=== PATIENT | female | born 1935 | race Two or more races ===

== ENCOUNTER 2023-10-10 15:30 | Inpatient (IN) | payer OTHER ==
[~2023-10-10] VITALS: Ht 160 cm; Wt 75.4 kg
[2023-10-10] MEDS: dilTIAZem 25 MG/5 ML VIAL IV ONE ×2 (16:23→16:32)
[2023-10-10 16:27] LABS: Basophils # (auto) 0.1 10 ^3/uL (0-0.2); Basophils % (auto) 0.5 % (0.0-2.0); Eosinophils # (auto) 0.3 10 ^3/uL (0-0.8); Eosinophils % (auto) 2.4 % (0.0-7.0); Hematocrit 43.9 % (36.0-46.0); Hemoglobin 14.3 g/dL (12.2-16.2); Lymphocytes # (auto) 0.9 10 ^3/uL (0.4-5.4); Lymphocytes % (auto) 7.1 % (10.0-50.0); Mean Corpuscular Hemoglobin 29.9 pg (28.0-32.0); Mean Corpuscular Hgb Conc. 32.7 g/dL (32.0-36.0); Mean Corpuscular Volume 91.7 fL (80.0-100.0); Monocytes # (auto) 0.8 10 ^3/uL (0-1.3); Monocytes % (auto) 6.5 % (0.0-12.0); Neutrophils # (auto) 10.4 10 ^3/uL (1.6-8.6); Neutrophils % (auto) 83.5 % (37.0-80.0); Nucleated Red Blood Cells % 0.1 %; Red Blood Cells 4.79 10^6/uL (4.0-5.20); Red Cell Distribution Width 14.1 % (11.8-14.3); White Blood Cell 12.4 10^3/uL (4.4-10.8)
[2023-10-10 16:45] LABS: Alanine Aminotransferase 11 U/L (7-40); Albumin 4.5 g/dL (3.2-4.8); Alkaline Phosphatase 76 U/L (46-116); Anion Gap 7 (5-15); Aspartate Aminotransferase 19 U/L (13-40); BUN/Creatinine Ratio 8.8 (10.0-20.0); Bilirubin, Total 0.5 mg/dL (0.2-1.0); Blood Urea Nitrogen 7 mg/dL (9-23); Calcium 9.3 mg/dL (8.5-10.1); Carbon Dioxide 23 mmol/L (20-30); Chloride 98 mmol/L (98-107); Glucose 104 mg/dL (74-106); Potassium 3.9 mmol/L (3.5-5.1); Sodium 128 mmol/L (136-145); Total Protein 7.5 g/dL (5.7-8.2)
[2023-10-10] MEDS: AMIODARONE BOLUS KIT 100 ML IV ONE (16:48)
[2023-10-10] MEDS ORDERED: dilTIAZem 125mg/125ml BAG KIT 125 ML IV ONE (17:00)
[2023-10-10] MEDS: AMIODARONE 450mg/250ml AE 250 ML IV SCH ×2 (17:00→23:10)
[2023-10-10] MEDS ORDERED: ENOXAPARIN SOD 100 MG/1 ML SYRINGE SC ONE (17:15)
[2023-10-10] MEDS ORDERED: MORPHINE SULFATE INJ 2 MG/ml SYRG IV PRN ×3 (17:15→18:30)
[2023-10-10] MEDS ORDERED: NITROGLYCERIN 0.4 MG SL TAB SL PRN ×2 (17:15→18:30)
[2023-10-10] MEDS: ENOXAPARIN SOD 80 MG/0.8ML SYRINGE SC SCH (17:39)
[2023-10-10] MEDS: METOPROLOL TARTRATE 25 MG TAB PO ONE (17:39)
[2023-10-10] MEDS: MAGNESIUM SULFATE 1GM/100ML 100 ML IV ONE ×2 (17:39→18:30)
[2023-10-10] MEDS: POTASSIUM CHL 20 Meq TABLET PO ONE (17:40)
[2023-10-10] MEDS ORDERED: DOCUSATE SOD 100 MG CAP PO PRN (18:30)
[2023-10-10] MEDS ORDERED: ONDANSETRON HCL 4 MG/2 ML VIAL IV PRN (18:30)
[2023-10-10] MEDS ORDERED: ACETAMINOPHEN 325 MG TAB PO PRN (18:30)
[2023-10-10] MEDS ORDERED: HYDROcodone-ACET 5/325MG TAB PO PRN (18:30)
[2023-10-10 18:31] LABS: Urine Bacteria FEW /hpf (None Seen); Urine Blood Negative /uL (Negative); Urine Clarity Clear (Clear); Urine Color Colorless (Yellow); Urine Protein, UAD Negative (Negative); Urine Specific Gravity 1.006 (1.001-1.035); Urine Urobilinogen Normal (Negative); Urine WBC 1 /hpf (0 - 5); Urine pH 5.5 (5.0-9.0)
[2023-10-10] MEDS ORDERED: LISI2.5T47 PO (18:38)
[2023-10-10] MEDS ORDERED: METF-370 PO (18:38)
[2023-10-10] MEDS ORDERED: HYDR25TA5 PO (18:38)
[2023-10-10] MEDS ORDERED: SITA100T7 PO (18:38)
[2023-10-10] MEDS ORDERED: BUPR150T8 PO (18:38)
[2023-10-10] MEDS ORDERED: GLIP5TAB21 PO (18:38)
[2023-10-10 18:51] VITALS: PULSE 132; RESP 20; O2SAT 96
[2023-10-10] MEDS ORDERED: DEXTROSE (50%) 50ML SYRG IV PRN (19:00)
[2023-10-10] MEDS ORDERED: ALBUTEROL SULF 2.5 MG/0.5ML(0.5%) NEB SOLN NEB PRN (19:00)
[2023-10-10] MEDS ORDERED: IPRATROPIUM BROM 0.5 MG/2.5ML INH SOL NEB PRN (19:00)
[2023-10-10] MEDS: cefTRIAXone 1GM/50ML D5W 50 ML IV ONE (19:01)
[2023-10-10] MEDS: DOXYCYCLINE 100MG/250ML 250 ML IV SCH (19:01)
[2023-10-10 19:20] VITALS: PULSE 119; RESP 16; O2SAT 93
[2023-10-10] MEDS: PANTOPRAZOLE 40 MG/10 ML VIAL INJ IV SCH (19:49)
[2023-10-10 19:58] VITALS: BP 120/69; PULSE 149; RESP 20; O2SAT 98
[2023-10-10] MEDS: METOPROLOL TARTRATE 25 MG TAB PO SCH (21:06)
[2023-10-10] MEDS: InsuLIN REG 1unit/0.01ml Soln (100units/ml) SC SCH (21:07)
[2023-10-10] MEDS: ACCU-CHEK COMFORT CURVE STRIP VI SCH (21:07)
[2023-10-11 05:12] LABS: Basophils # (auto) 0 10 ^3/uL (0-0.2); Basophils % (auto) 0.3 % (0.0-2.0); Eosinophils # (auto) 0 10 ^3/uL (0-0.8); Eosinophils % (auto) 0.1 % (0.0-7.0); Hematocrit 40.9 % (36.0-46.0); Hemoglobin 13.8 g/dL (12.2-16.2); Lymphocytes # (auto) 0.5 10 ^3/uL (0.4-5.4); Lymphocytes % (auto) 3.6 % (10.0-50.0); Mean Corpuscular Hgb Conc. 33.7 g/dL (32.0-36.0); Mean Corpuscular Volume 89.1 fL (80.0-100.0); Monocytes # (auto) 0.7 10 ^3/uL (0-1.3); Monocytes % (auto) 4.6 % (0.0-12.0); Neutrophils # (auto) 12.9 10 ^3/uL (1.6-8.6); Neutrophils % (auto) 91.4 % (37.0-80.0); Red Blood Cells 4.59 10^6/uL (4.0-5.20); Red Cell Distribution Width 14.1 % (11.8-14.3); White Blood Cell 14.1 10^3/uL (4.4-10.8)
[2023-10-11 05:32] LABS: Alanine Aminotransferase 18 U/L (7-40); Albumin 3.9 g/dL (3.2-4.8); Alkaline Phosphatase 74 U/L (46-116); Anion Gap 9 (5-15); Aspartate Aminotransferase 22 U/L (13-40); BUN/Creatinine Ratio 15.1 (10.0-20.0); Bilirubin, Total 0.6 mg/dL (0.2-1.0); Blood Urea Nitrogen 14 mg/dL (9-23); Carbon Dioxide 21 mmol/L (20-30); Chloride 93 mmol/L (98-107); Glucose 295 mg/dL (74-106); Potassium 4.8 mmol/L (3.5-5.1); Total Protein 6.4 g/dL (5.7-8.2)
[2023-10-11 05:33] LABS: Sodium 123 mmol/L (136-145)
[2023-10-11 07:00] VITALS: O2SAT 95; O2SAT 97
[2023-10-11 08:00] VITALS: PULSE 127; RESP 16; O2SAT 98
[2023-10-11] MEDS: cefTRIAXone 1GM/50ML D5W 50 ML IV SCH (09:54)
[2023-10-11] MEDS: ASPirin 81 mg TAB PO SCH (09:55)
[2023-10-11 10:29] LABS: Magnesium 1.7 mg/dL (1.6-2.6)
[2023-10-11] MEDS: SODIUM CHLORIDE 0.9% 1,000 ML IV SCH (11:03)
[2023-10-11] MEDS: VERAPAMIL 2.5MG/ML INJ 2ML VIAL IV ONE (11:04)
[2023-10-11] MEDS: MAGNESIUM SULFATE 1GM/100ML 100 ML IV ONE (12:41)
[2023-10-11] MEDS: FUROSEMIDE 20 MG/2 ML VIAL IV ONE (14:33)
[2023-10-11 16:13] VITALS: RESP 16; O2SAT 92
[2023-10-11] MEDS ORDERED: LISI-275 PO (17:56)
[2023-10-11 18:05] VITALS: O2SAT 94
[2023-10-11 20:00] VITALS: BP 103/70; PULSE 133; PULSE 134; RESP 18; TEMP 98.5; O2SAT 96
[2023-10-11 22:00] VITALS: BP 103/70; PULSE 113; RESP 18; TEMP 98.5; O2SAT 96
[2023-10-12] VITALS (20 sets, daily range): BP systolic 88–124; BP diastolic 51–75; PULSE 88–138; RESP 18–24; TEMP 98–98.4; O2SAT 90–96
[2023-10-12 06:38] LABS: Basophils # (auto) 0 10 ^3/uL (0-0.2); Basophils % (auto) 0.2 % (0.0-2.0); Eosinophils # (auto) 0.1 10 ^3/uL (0-0.8); Eosinophils % (auto) 0.5 % (0.0-7.0); Hematocrit 41.1 % (36.0-46.0); Hemoglobin 13.5 g/dL (12.2-16.2); Lymphocytes # (auto) 1.3 10 ^3/uL (0.4-5.4); Lymphocytes % (auto) 8.4 % (10.0-50.0); Mean Corpuscular Hemoglobin 30.4 pg (28.0-32.0); Mean Corpuscular Volume 92.2 fL (80.0-100.0); Monocytes # (auto) 1.4 10 ^3/uL (0-1.3); Monocytes % (auto) 9.1 % (0.0-12.0); Neutrophils # (auto) 12.8 10 ^3/uL (1.6-8.6); Neutrophils % (auto) 81.8 % (37.0-80.0); Red Blood Cells 4.46 10^6/uL (4.0-5.20); Red Cell Distribution Width 14.2 % (11.8-14.3); White Blood Cell 15.7 10^3/uL (4.4-10.8)
[2023-10-12 06:54] LABS: Chloride 93 mmol/L (98-107); Potassium 3.7 mmol/L (3.5-5.1); Sodium 125 mmol/L (136-145)
[2023-10-12 06:55] LABS: Anion Gap 9 (5-15); Calcium 8.9 mg/dL (8.7-10.4); Carbon Dioxide 23 mmol/L (20-30)
[2023-10-12 07:00] LABS: Glucose 177 mg/dL (74-106); Magnesium 1.6 mg/dL (1.6-2.6)
[2023-10-12 07:47] LABS: BUN/Creatinine Ratio 10.7 (10.0-20.0); Blood Urea Nitrogen 9 mg/dL (9-23)
[2023-10-12] MEDS: MAGNESIUM SULFATE 1GM/100ML 100 ML IV SCH (11:05)
[2023-10-12] MEDS: FUROSEMIDE 20 MG/2 ML VIAL IV ONE (11:05)
[2023-10-12] MEDS: LIDOCAINE VISCOUS 2% 15ML UD PO ONE (11:15)
[2023-10-12] MEDS: fentaNYL CITRATE 100 MCG/2 ML VL IV ONE (11:15)
[2023-10-12] MEDS: MIDAZOLAM HCL 2MG/2ML 2ml VIAL (1mg/ml) IV ONE (11:15)
[2023-10-12] MEDS: MIDAZOLAM HCL 2MG/2ML 2ml VIAL (1mg/ml) ONE (12:14)
[2023-10-12] MEDS: AMIODARONE HCL 200 MG TAB PO ONE (13:45)
[2023-10-12] MEDS: MAGNESIUM SULFATE 1GM/100ML 100 ML IV ONE (15:36)
[2023-10-12] MEDS: AMIODARONE HCL 200 MG TAB PO SCH (22:21)
[2023-10-12] MEDS: SACUBITRIL-VALSARTAN 24mg/26mg TAB PO SCH (22:21)
[2023-10-12] MEDS: APIXABAN 2.5 MG TAB PO SCH (22:21)
[2023-10-13] VITALS (8 sets, daily range): BP systolic 92–111; BP diastolic 51–60; PULSE 86–90; RESP 15–18; TEMP 97.5–98.4; O2SAT 90–98
[2023-10-13 06:14] LABS: Basophils # (auto) 0.1 10 ^3/uL (0-0.2); Basophils % (auto) 0.3 % (0.0-2.0); Eosinophils # (auto) 0.2 10 ^3/uL (0-0.8); Eosinophils % (auto) 0.9 % (0.0-7.0); Hemoglobin 13.1 g/dL (12.2-16.2); Lymphocytes # (auto) 1.3 10 ^3/uL (0.4-5.4); Lymphocytes % (auto) 5.9 % (10.0-50.0); Mean Corpuscular Hemoglobin 28.8 pg (28.0-32.0); Mean Corpuscular Volume 89.9 fL (80.0-100.0); Monocytes % (auto) 9.6 % (0.0-12.0); Neutrophils # (auto) 17.8 10 ^3/uL (1.6-8.6); Neutrophils % (auto) 83.3 % (37.0-80.0); Nucleated Red Blood Cells % 0.2 %; Red Blood Cells 4.56 10^6/uL (4.0-5.20); Red Cell Distribution Width 13.9 % (11.8-14.3); White Blood Cell 21.3 10^3/uL (4.4-10.8)
[2023-10-13] MEDS: INSULIN LANTUS (GLARGINE) 1 /0.01ml (100units/ml) SC SCH (06:38)
[2023-10-13 09:39] LABS: Chloride 92 mmol/L (98-107); Sodium 122 mmol/L (136-145)
[2023-10-13 09:40] LABS: Carbon Dioxide 26 mmol/L (20-30)
[2023-10-13 09:41] LABS: Calcium 8.5 mg/dL (8.5-10.1)
[2023-10-13 09:45] LABS: Glucose 292 mg/dL (74-106)
[2023-10-13 09:52] LABS: BUN/Creatinine Ratio 9.9 (10.0-20.0); Blood Urea Nitrogen 9 mg/dL (9-23)
[2023-10-13 09:53] LABS: Potassium 4.1 mmol/L (3.5-5.1)
[2023-10-13] MEDS: FUROSEMIDE 20 MG/2 ML VIAL IV SCH (10:29)
[2023-10-13] MEDS: EMPAGLIFLOZIN 10 MG TAB PO SCH (10:34)
[2023-10-13 11:08] LABS: Anion Gap 4 (5-15)
[2023-10-13 11:18] LABS: Magnesium 1.8 mg/dL (1.6-2.6)
[2023-10-13] MEDS: PIPERACILLIN-TAZOB 3.375GM 100 ML IV SCH (15:50)
[2023-10-13] MEDS: MAGNESIUM SULFATE 1GM/100ML 100 ML IV ONE (15:50)
[2023-10-13 16:44] LABS: Urine Bacteria None Seen /hpf (None Seen)
[2023-10-13 17:11] LABS: Urine Blood 3+ /uL (Negative); Urine Clarity Clear (Clear); Urine Color Colorless (Yellow); Urine Protein, UAD Negative (Negative); Urine Specific Gravity 1.014 (1.001-1.035); Urine Urobilinogen Normal (Negative); Urine WBC 24 /hpf (0 - 5)
[2023-10-13] MEDS: DOXYCYCLINE 100MG/250ML 250 ML IV SCH (20:59)
[2023-10-14] VITALS (8 sets, daily range): BP systolic 89–106; BP diastolic 49–62; PULSE 84–135; RESP 16–20; TEMP 97.5–98.7; O2SAT 95–99
[2023-10-14 06:48] LABS: Basophils # (auto) 0.1 10 ^3/uL (0-0.2); Basophils % (auto) 0.5 % (0.0-2.0); Eosinophils # (auto) 0.4 10 ^3/uL (0-0.8); Eosinophils % (auto) 2.7 % (0.0-7.0); Hematocrit 42.9 % (36.0-46.0); Lymphocytes # (auto) 0.8 10 ^3/uL (0.4-5.4); Lymphocytes % (auto) 5.8 % (10.0-50.0); Mean Corpuscular Hemoglobin 29.5 pg (28.0-32.0); Mean Corpuscular Hgb Conc. 32.6 g/dL (32.0-36.0); Mean Corpuscular Volume 90.4 fL (80.0-100.0); Monocytes # (auto) 1.2 10 ^3/uL (0-1.3); Monocytes % (auto) 8.5 % (0.0-12.0); Neutrophils # (auto) 12.1 10 ^3/uL (1.6-8.6); Neutrophils % (auto) 82.5 % (37.0-80.0); Nucleated Red Blood Cells % 0.2 %; Red Blood Cells 4.74 10^6/uL (4.0-5.20); Red Cell Distribution Width 13.8 % (11.8-14.3); White Blood Cell 14.6 10^3/uL (4.4-10.8)
[2023-10-14 07:08] LABS: Alanine Aminotransferase 13 U/L (7-40); Albumin 3.7 g/dL (3.2-4.8); Alkaline Phosphatase 72 U/L (46-116); Anion Gap 9 (5-15); Aspartate Aminotransferase 19 U/L (13-40); BUN/Creatinine Ratio 14.9 (10.0-20.0); Blood Urea Nitrogen 14 mg/dL (9-23); Calcium 8.7 mg/dL (8.5-10.1); Carbon Dioxide 26 mmol/L (20-30); Chloride 95 mmol/L (98-107); Glucose 159 mg/dL (74-106); Potassium 3.1 mmol/L (3.5-5.1)
[2023-10-14 07:09] LABS: Bilirubin, Total 0.8 mg/dL (0.2-1.0); Total Protein 6.5 g/dL (5.7-8.2)
[2023-10-14 07:11] LABS: Sodium 130 mmol/L (136-145)
[2023-10-14] MEDS: POTASSIUM CHL 20 Meq TABLET PO ONE (12:14)
[2023-10-14] MEDS: AMIODARONE 450mg/250ml AE 250 ML IV SCH (12:33)
[2023-10-14] MEDS: DOXYCYCLINE 100MG/250ML 250 ML IV SCH (14:29)
[2023-10-14 19:04] LABS: COVID19 ANTIGEN SOFIA FIA NEGATIVE (NEGATIVE); Rapid Influenza A Negative (Negative); Rapid Influenza B Negative (Negative)
[2023-10-14] MEDS: AMIODARONE 450mg/250ml AE 250 ML IV ONE (21:28)
[2023-10-15] VITALS (8 sets, daily range): BP systolic 106–119; BP diastolic 53–80; PULSE 67–89; RESP 18–24; TEMP 97.5–98.7; O2SAT 90–100
[2023-10-15] MEDS: AMIODARONE 450mg/250ml AE 250 ML IV SCH (02:15)
[2023-10-15 06:32] LABS: Alanine Aminotransferase 12 U/L (7-40); Albumin 3.5 g/dL (3.2-4.8); Alkaline Phosphatase 75 U/L (46-116); Anion Gap 6 (5-15); Aspartate Aminotransferase 16 U/L (13-40); Blood Urea Nitrogen 13 mg/dL (9-23); Calcium 8.8 mg/dL (8.7-10.4); Carbon Dioxide 28 mmol/L (20-30); Chloride 94 mmol/L (98-107); Glucose 143 mg/dL (74-106); Potassium 3.3 mmol/L (3.5-5.1); Sodium 128 mmol/L (136-145)
[2023-10-15 06:33] LABS: Bilirubin, Total 0.7 mg/dL (0.2-1.0); Total Protein 6.2 g/dL (5.7-8.2)
[2023-10-15 06:34] LABS: Basophils # (auto) 0.1 10 ^3/uL (0-0.2); Basophils % (auto) 0.5 % (0.0-2.0); Eosinophils # (auto) 0.5 10 ^3/uL (0-0.8); Hematocrit 40.3 % (36.0-46.0); Hemoglobin 13.5 g/dL (12.2-16.2); Lymphocytes # (auto) 1.5 10 ^3/uL (0.4-5.4); Lymphocytes % (auto) 10.7 % (10.0-50.0); Mean Corpuscular Hemoglobin 30.2 pg (28.0-32.0); Mean Corpuscular Hgb Conc. 33.6 g/dL (32.0-36.0); Mean Corpuscular Volume 89.8 fL (80.0-100.0); Monocytes # (auto) 1.2 10 ^3/uL (0-1.3); Monocytes % (auto) 9.1 % (0.0-12.0); Neutrophils # (auto) 10.4 10 ^3/uL (1.6-8.6); Neutrophils % (auto) 75.7 % (37.0-80.0); Red Blood Cells 4.49 10^6/uL (4.0-5.20); Red Cell Distribution Width 13.9 % (11.8-14.3); White Blood Cell 13.7 10^3/uL (4.4-10.8)
[2023-10-15] MEDS ORDERED: AMIODARONE HCL 200 MG TAB ONE ×2 (13:31→22:39)
[2023-10-15] MEDS: AMIODARONE HCL 200 MG TAB PO ONE (13:33)
[2023-10-15] MEDS ORDERED: MAGNESIUM SULFATE 1GM/100ML 200 ML IV ONE (15:29)
[2023-10-15] MEDS ORDERED: POTASSIUM CHL 20 Meq TABLET PO ONE (15:30)
[2023-10-15] MEDS: POTASSIUM CHL 20 Meq TABLET PO ONE (15:43)
[2023-10-15] MEDS: MAGNESIUM SULFATE 1GM/100ML 100 ML IV SCH (15:44)
[2023-10-15] MEDS ORDERED: AMIODARONE HCL 200 MG TAB PO SCH (22:00)
[2023-10-15] MEDS: AMIODARONE HCL 200 MG TAB PO SCH (22:43)
[2023-10-16] VITALS (7 sets, daily range): BP systolic 101–123; BP diastolic 52–67; PULSE 77–85; RESP 18–20; TEMP 98.1–98.4; O2SAT 91–95
[2023-10-16 05:59] LABS: Basophils # (auto) 0.1 10 ^3/uL (0-0.2); Basophils % (auto) 0.6 % (0.0-2.0); Eosinophils # (auto) 0.4 10 ^3/uL (0-0.8); White Blood Cell 13.5 10^3/uL (4.4-10.8)
[2023-10-16 06:01] LABS: Hematocrit 42.7 % (36.0-46.0); Hemoglobin 14.4 g/dL (12.2-16.2); Lymphocytes # (auto) 1.3 10 ^3/uL (0.4-5.4); Lymphocytes % (auto) 9.9 % (10.0-50.0); Mean Corpuscular Hemoglobin 30.3 pg (28.0-32.0); Mean Corpuscular Hgb Conc. 33.8 g/dL (32.0-36.0); Mean Corpuscular Volume 89.5 fL (80.0-100.0); Monocytes % (auto) 7.1 % (0.0-12.0); Neutrophils # (auto) 10.7 10 ^3/uL (1.6-8.6); Neutrophils % (auto) 79.4 % (37.0-80.0); Red Blood Cells 4.77 10^6/uL (4.0-5.20); Red Cell Distribution Width 14.1 % (11.8-14.3)
[2023-10-16 06:17] LABS: Anion Gap 9 (5-15); Carbon Dioxide 24 mmol/L (20-30); Chloride 96 mmol/L (98-107); Potassium 3.8 mmol/L (3.5-5.1); Sodium 129 mmol/L (136-145)
[2023-10-16 06:18] LABS: Calcium 9.1 mg/dL (8.7-10.4)
[2023-10-16 06:23] LABS: BUN/Creatinine Ratio 10.6 (10.0-20.0); Blood Urea Nitrogen 11 mg/dL (9-23); Glucose 150 mg/dL (74-106); Magnesium 2.3 mg/dL (1.6-2.6)
[2023-10-16] MEDS ORDERED: SACU1TAB PO (11:14)
[2023-10-16] MEDS ORDERED: INSLANTI SC (11:14)
[2023-10-16] MEDS ORDERED: ASPI-325 PO (11:14)
[2023-10-16] MEDS ORDERED: EMPA1TAB PO (11:14)
[2023-10-16] MEDS ORDERED: INSREGI SC (11:14)
[2023-10-16] MEDS ORDERED: APIX2.5T PO (11:14)
[2023-10-16] MEDS ORDERED: FURO1TAB33 PO (11:15)
[2023-10-16] MEDS ORDERED: AMIO200T33 PO (11:21)
[2023-10-16] MEDS ORDERED: AUG875T PO (11:21)
== END 2023-10-16 15:50 | disposition home or self-care (01) | DRG 871 ==
LOC: EDBD 15:30 → ER 15:30 → TELE 18:34 → CENTRAL 10-11 15:35 → TELE-CENTR 10-12 00:16
PROVIDERS: ADMIT Internal Medicine Pulmonary Disease; ATTEND Internal Medicine Pulmonary Disease
PROC: B24BZZ4 Ultrasonography of Heart with Aorta, Transesophageal (ICD-10-PCS; principal; 2023-10-12)
PROC: 5A2204Z Restoration of Cardiac Rhythm, Single (ICD-10-PCS; 2023-10-12)
DX: A41.50 Gram-negative sepsis, unspecified (principal); I50.23 Acute on chronic systolic (congestive) heart failure; J15.69 Pneumonia due to other Gram-negative bacteria; J96.01 Acute respiratory failure with hypoxia; J15.9 Unspecified bacterial pneumonia; I47.10 Supraventricular tachycardia, unspecified; E87.1 Hypo-osmolality and hyponatremia; I25.3 Aneurysm of heart; Q21.12 Patent foramen ovale; I48.92 Unspecified atrial flutter; I48.20 Chronic atrial fibrillation, unspecified; Z20.822 Contact with and (suspected) exposure to COVID-19; E66.9 Obesity, unspecified; I11.0 Hypertensive heart disease with heart failure; E11.9 Type 2 diabetes mellitus without complications; D72.829 Elevated white blood cell count, unspecified; E83.42 Hypomagnesemia; F32.A Depression, unspecified; E86.1 Hypovolemia; Z82.49 Family history of ischemic heart disease and other diseases of the circulatory system; Z79.84 Long term (current) use of oral hypoglycemic drugs; Z68.30 Body mass index [BMI] 30.0-30.9, adult
CPT/HCPCS: 36415; 71045; 71250; 72192; 74150; 76604; 80048; 80053; 80061; 81001; 82962; 83036; 83735; 83880; 83930; 83935; 84443; 84484; 85025; 87040; 87081; 87086; 87426; 87804; 92960; 93005; 93306; 93312; 97110; 97116; 97163; 97530; 99152; 99291; C9113; G0378; J1815; J2250; J2543; J3490

== ENCOUNTER → 2023-11-22 | Outpatient (CLI) | payer OTHER ==
[~2023-11-22] MED LIST: AMIO200T33 PO; APIX2.5T PO; ASPI-325 PO; AUG875T PO; BUPR150T8 PO; EMPA1TAB PO; FURO1TAB33 PO; GLIP5TAB21 PO; LISI2.5T47 PO; METF-370 PO; SACU1TAB PO; SITA100T7 PO
[2023-11-22 11:18] LABS: Basophils # (auto) 0.1 10 ^3/uL (0-0.2); Basophils % (auto) 0.5 % (0.0-2.0); Eosinophils # (auto) 0.1 10 ^3/uL (0-0.8); Eosinophils % (auto) 0.9 % (0.0-7.0); Hemoglobin 14.3 g/dL (12.2-16.2); Lymphocytes # (auto) 1.1 10 ^3/uL (0.4-5.4); Lymphocytes % (auto) 9.1 % (10.0-50.0); Mean Corpuscular Hemoglobin 29.4 pg (28.0-32.0); Mean Corpuscular Hgb Conc. 32.6 g/dL (32.0-36.0); Mean Corpuscular Volume 90.3 fL (80.0-100.0); Monocytes # (auto) 0.7 10 ^3/uL (0-1.3); Monocytes % (auto) 5.6 % (0.0-12.0); Neutrophils # (auto) 10.4 10 ^3/uL (1.6-8.6); Neutrophils % (auto) 83.9 % (37.0-80.0); Red Blood Cells 4.88 10^6/uL (4.0-5.20); Red Cell Distribution Width 15.9 % (11.8-14.3); White Blood Cell 12.3 10^3/uL (4.4-10.8)
[2023-11-22 11:53] LABS: Chloride 96 mmol/L (98-107); Potassium 4.1 mmol/L (3.5-5.1); Sodium 129 mmol/L (136-145)
[2023-11-22 11:54] LABS: Carbon Dioxide 26 mmol/L (20-30)
[2023-11-22 11:55] LABS: Calcium 9.2 mg/dL (8.7-10.4)
[2023-11-22 12:00] LABS: BUN/Creatinine Ratio 13.7 (10.0-20.0); Blood Urea Nitrogen 17 mg/dL (9-23); Glucose 152 mg/dL (74-106)
[2023-11-22 12:04] LABS: Anion Gap 7 (5-15)
[2023-11-22 13:03] LABS: Creatinine, Urine 94.65 mg/dL (30.0-125.0)
== END | disposition home or self-care (01) ==
LOC: LAB 10:51
PROVIDERS: ATTEND Internal Medicine
DX: E11.9 Type 2 diabetes mellitus without complications (principal); I11.0 Hypertensive heart disease with heart failure; I50.9 Heart failure, unspecified; R00.0 Tachycardia, unspecified
CPT/HCPCS: 36415; 80048; 82043; 82570; 83036; 83880; 85025

== ENCOUNTER → 2024-01-10 | Outpatient (CLI) | payer OTHER ==
[2024-01-10 13:55] LABS: Urine Bacteria None Seen /hpf (None Seen)
[2024-01-10 14:05] LABS: Basophils # (auto) 0.1 10 ^3/uL (0-0.2); Basophils % (auto) 0.6 % (0.0-2.0); Eosinophils # (auto) 0.1 10 ^3/uL (0-0.8); Eosinophils % (auto) 0.9 % (0.0-7.0); Hematocrit 40.2 % (36.0-46.0); Hemoglobin 13.5 g/dL (12.2-16.2); Lymphocytes # (auto) 1.5 10 ^3/uL (0.4-5.4); Lymphocytes % (auto) 10.2 % (10.0-50.0); Mean Corpuscular Hemoglobin 31.1 pg (28.0-32.0); Mean Corpuscular Hgb Conc. 33.6 g/dL (32.0-36.0); Mean Corpuscular Volume 92.6 fL (80.0-100.0); Monocytes # (auto) 0.8 10 ^3/uL (0-1.3); Monocytes % (auto) 5.3 % (0.0-12.0); Neutrophils # (auto) 12.5 10 ^3/uL (1.6-8.6); Red Blood Cells 4.34 10^6/uL (4.0-5.20); Red Cell Distribution Width 17.3 % (11.8-14.3)
[2024-01-10 14:14] LABS: Urine Blood Negative /uL (Negative); Urine Clarity Clear (Clear); Urine Color Light-Yellow (Yellow); Urine Hyaline Cast FEW /lpf (0 - 2); Urine Protein, UAD TRACE (Negative); Urine Specific Gravity 1.012 (1.001-1.035); Urine Urobilinogen Normal (Negative); Urine WBC 15 /hpf (0 - 5); Urine pH 6.5 (5.0-9.0)
[2024-01-10 14:21] LABS: Alanine Aminotransferase 10 U/L (7-40); Alkaline Phosphatase 68 U/L (46-116); Anion Gap 7 (5-15); Aspartate Aminotransferase 11 U/L (13-40); BUN/Creatinine Ratio 10.6 (10.0-20.0); Blood Urea Nitrogen 9 mg/dL (9-23); Calcium 9.5 mg/dL (8.7-10.4); Carbon Dioxide 27 mmol/L (20-30); Chloride 97 mmol/L (98-107); Glucose 107 mg/dL (74-106); Potassium 3.4 mmol/L (3.5-5.1); Sodium 131 mmol/L (136-145)
[2024-01-10 14:22] LABS: Bilirubin, Total 0.4 mg/dL (0.2-1.0); Total Protein 6.8 g/dL (5.7-8.2)
== END | disposition home or self-care (01) ==
LOC: LAB 13:44
PROVIDERS: ATTEND Internal Medicine
DX: E11.22 Type 2 diabetes mellitus with diabetic chronic kidney disease (principal); N18.30 Chronic kidney disease, stage 3 unspecified; R22.0 Localized swelling, mass and lump, head
CPT/HCPCS: 36415; 80053; 81001; 85025

== ENCOUNTER → 2024-01-25 | Outpatient (CLI) | payer OTHER ==
[2024-01-25 11:32] LABS: Basophils # (auto) 0.1 10 ^3/uL (0-0.2); Basophils % (auto) 0.6 % (0.0-2.0); Eosinophils # (auto) 0.2 10 ^3/uL (0-0.8); Eosinophils % (auto) 1.2 % (0.0-7.0); Hematocrit 41.1 % (36.0-46.0); Hemoglobin 13.9 g/dL (12.2-16.2); Lymphocytes % (auto) 7.1 % (10.0-50.0); Mean Corpuscular Hemoglobin 31.8 pg (28.0-32.0); Mean Corpuscular Hgb Conc. 33.7 g/dL (32.0-36.0); Mean Corpuscular Volume 94.2 fL (80.0-100.0); Monocytes # (auto) 0.8 10 ^3/uL (0-1.3); Monocytes % (auto) 5.9 % (0.0-12.0); Neutrophils # (auto) 11.9 10 ^3/uL (1.6-8.6); Neutrophils % (auto) 85.2 % (37.0-80.0); Red Blood Cells 4.36 10^6/uL (4.0-5.20); Red Cell Distribution Width 17.1 % (11.8-14.3)
[2024-01-25 12:45] LABS: Alanine Aminotransferase 16 U/L (7-40); Albumin 4.1 g/dL (3.2-4.8); Alkaline Phosphatase 76 U/L (46-116); Anion Gap 9 (5-15); Aspartate Aminotransferase 14 U/L (13-40); BUN/Creatinine Ratio 9.9 (10.0-20.0); Bilirubin, Total 0.5 mg/dL (0.2-1.0); Blood Urea Nitrogen 10 mg/dL (9-23); Calcium 9.3 mg/dL (8.7-10.4); Carbon Dioxide 28 mmol/L (20-30); Chloride 95 mmol/L (98-107); Cholesterol 175 mg/dL (< 200); Glucose 111 mg/dL (74-106); HDL Cholesterol 42 mg/dL (40-59); LDL Cholesterol 130 mg/dL (< 100); Sodium 132 mmol/L (136-145); Total Protein 6.6 g/dL (5.7-8.2); Triglycerides 98 mg/dL (< 150)
== END | disposition home or self-care (01) ==
LOC: LAB 10:59
PROVIDERS: ATTEND Student in an Organized Health Care Education/Training Program
DX: E11.9 Type 2 diabetes mellitus without complications (principal); I10 Essential (primary) hypertension
CPT/HCPCS: 36415; 80053; 80061; 83036; 85025